=== PATIENT | male | born 1975 | race Caucasian/White ===

== ENCOUNTER 2018-02-12 21:04 | Emergency (ER) | payer BC ==
[2018-02-12 21:40] LABS: Basophils % (Auto) 0.6 % (0.0-1.8); Eosinophils % (Auto) 0.7 % (0.0-4.3); Hematocrit 41.3 % (35.5-45.6); Hemoglobin 14.1 gm/dl (11.8-15.2); Lymphocytes # (Auto) 1.7 K/mm3 (1.2-5.4); Lymphocytes % (Auto) 25.3 % (13.4-35.0); Mean Corpuscular HGB Conc 34 % (32-34); Mean Corpuscular Hemoglobin 32 pg (28-32); Mean Corpuscular Volume 93 fl (84-94); Monocytes # (Auto) 0.6 K/mm3 (0.0-0.8); Monocytes % (Auto) 9.3 % (0.0-7.3); Platelet Count 170 K/mm3 (140-440); Red Blood Count 4.45 M/mm3 (3.65-5.03); Red Cell Distribution Width 13.3 % (13.2-15.2)
[2018-02-12 22:03] LABS: BUN/Creatinine Ratio 23; Blood Urea Nitrogen 23 mg/dL (9-20); Calcium 9.1 mg/dL (8.4-10.2); Hemolysis Index 3
[2018-02-12 22:19] LABS: Bilirubin,Urine NEG (Negative); Blood,Urine NEG (Negative); Color,Urine Straw (Yellow); Mucus,Urine FEW /HPF; Protein,Urine <15 mg/dL mg/dL (Negative); Urobilinogen,Urine < 2.0 mg/dL (<2.0)
[2018-02-13 00:42] VITALS: BP 132/76
[2018-02-13] MEDS ORDERED: FLEXERIL PO ONE (02:06)
[2018-02-13] MEDS ORDERED: NORCO 5/325 PO ONE (02:08)
--- NOTE | 2018-02-13 02:16 | Emergency Department Report ---
HPI - General Chief Complaint: Abdominal Pain Time Seen by Provider: 02/13/18 01:57 - HPI HPI: Room 19 The patient is a 43-year-old male presented with a chief complaint of bilateral flank pain. The patient states after getting off work 2 days ago he noticed a sharp pain in bilateral flanks. The patient states the following day the pain increased but then waned later that day. The patient states today the pain severity returned prompting him to come to the ED. The patient admits to slight dysuria when the symptoms began 2 days ago. The patient had an episode of nausea and vomiting. Patient admits to chills but is unaware of a fever. Patient denies penile discharge. The patient denies any preceding trauma. Patient gives his pain score of 8/10 Location: Bilateral flank Duration: Intermittently 3 days Quality: Sharp Severity: 8/10 Modifying factors: [see above] Context: [see above] Mode of transportation: [not driving] ED Past Medical Hx - Past Medical History Hx Diabetes: Yes - Surgical History Past Surgical History?: No - Family History Family history: no significant - Social History Smoking Status: Former Smoker (none since ) Substance Use Type: None (denies illicit drug use) - Medications Home Medications: Home Medications Medication Instructions Recorded Confirmed Last Taken Type HumaLOG VIAL 15 unit SQ BID 02/12/18 02/12/18 Unknown History Levemir VIAL 20 unit SQ DAILY 02/12/18 02/12/18 Unknown History Cyclobenzaprine [Flexeril] 10 mg PO TID PRN #10 tablet 02/13/18 Unknown Rx HYDROcodone/ACETAMINOPHEN [[place] 1 - 2 each PO Q4-6H PRN #10 tablet 02/13/18 Unknown Rx 5-325 Tablet] Ibuprofen [Motrin 800 MG tab] 800 mg PO Q8HR PRN #20 tablet 02/13/18 Unknown Rx ED Review of Systems ROS: Stated complaint: LOWER BACK PAIN; PAINFUL URINATION Other details as noted in HPI Constitutional: chills. denies: fever Gastrointestinal: nausea, vomiting. denies: abdominal pain Genitourinary: dysuria. denies: discharge Musculoskeletal: back pain Physical Exam - Physical Exam Vital Signs: Vital Signs 02/12/18 02/12/18 02/13/18 21:03 21:22 00:36 Temperature 98.2 F 98.2 F 98.3 F Pulse Rate 81 78 70 Respiratory 18 18 16 Rate Blood Pressure 128/82 128/82 Blood Pressure 132/76 [Left] O2 Sat by Pulse 99 99 98 Oximetry 02/13/18 00:42 Temperature Pulse Rate Respiratory 16 Rate Blood Pressure Blood Pressure [Left] O2 Sat by Pulse 98 Oximetry Physical Exam: GENERAL: The patient is well-developed well-nourished male standing in room not appear to be in acute distress. [] HEENT: Normocephalic. Atraumatic. Extraocular motions are intact. Patient has moist mucous membranes. NECK: Supple. Trachea midline CHEST/LUNGS: Clear to auscultation. There is no respiratory distress noted. HEART/CARDIOVASCULAR: Regular. There is no tachycardia. There is no gallop rub or murmur. ABDOMEN: Abdomen is soft, nontender. Patient has normal bowel sounds. There is no abdominal distention. SKIN: There is no rash. There is no edema. There is no diaphoresis. NEURO: The patient is awake, alert, and oriented. The patient is cooperative. The patient has normal speech MUSCULOSKELETAL: There is bilateral CVA tenderness. There is no evidence of acute injury. ED Course Vital Signs 02/12/18 02/12/18 02/13/18 21:03 21:22 00:36 Temperature 98.2 F 98.2 F 98.3 F Pulse Rate 81 78 70 Respiratory 18 18 16 Rate Blood Pressure 128/82 128/82 Blood Pressure 132/76 [Left] O2 Sat by Pulse 99 99 98 Oximetry 02/13/18 00:42 Temperature Pulse Rate Respiratory 16 Rate Blood Pressure Blood Pressure [Left] O2 Sat by Pulse 98 Oximetry ED Medical Decision Making - Lab Data Result diagrams: 02/12/18 21:33 02/12/18 21:33 Laboratory Tests 02/12/18 02/12/18 02/12/18 21:24 21:33 21:33 WBC 6.5 RBC 4.45 Hgb 14.1 Hct 41.3 MCV 93 MCH 32 MCHC 34 RDW 13.3 Plt Count 170 Lymph % (Auto) 25.3 Hart % (Auto) 9.3 H Eos % (Auto) 0.7 Baso % (Auto) 0.6 Lymph # 1.7 Hart # 0.6 Eos # 0.0 Baso # 0.0 Seg Neutrophils % 64.1 Seg Neutrophils # 4.2 VBG pH Sodium 137 Potassium 4.1 Chloride 94.9 L Carbon Dioxide 31 H Anion Gap 15 BUN 23 H Creatinine 1.0 Estimated GFR > 60 BUN/Creatinine Ratio 23 Glucose 326 H POC Glucose 310 H Calcium 9.1 Urine Color Urine Turbidity Urine pH Ur Specific [place] Urine Protein Urine Glucose (UA) Urine Ketones Urine Blood Urine Nitrite Urine Bilirubin Urine Urobilinogen Ur Leukocyte Esterase Urine WBC (Auto) Urine RBC (Auto) Urine Mucus 02/12/18 02/12/18 21:33 22:00 WBC RBC Hgb Hct MCV MCH MCHC RDW Plt Count Lymph % (Auto) Hart % (Auto) Eos % (Auto) Baso % (Auto) Lymph # Hart # Eos # Baso # Seg Neutrophils % Seg Neutrophils # VBG pH 7.329 Sodium Potassium Chloride Carbon Dioxide Anion Gap BUN Creatinine Estimated GFR BUN/Creatinine Ratio Glucose POC Glucose Calcium Urine Color Straw Urine Turbidity Clear Urine pH 5.0 Ur Specific [place] 1.017 Urine Protein <15 mg/dl Urine Glucose (UA) >=500 Urine Ketones Neg Urine Blood Neg Urine Nitrite Neg Urine Bilirubin Neg Urine Urobilinogen < 2.0 Ur Leukocyte Esterase Neg Urine WBC (Auto) 2.0 Urine RBC (Auto) 1.0 Urine Mucus Few - Radiology Data Radiology results: report reviewed (CT abdomen and pelvis), image reviewed (CT abdomen and pelvis) [place] [address] Cat Scan Report Signed Patient: MILAGROS SERRANO MR#: [id number] : 1975 Acct:[id number] Age/Sex: 43 / M ADM Date: 02/12/18 Loc: ED Attending Dr: Ordering Physician: JONEL MCCONNELL MD Date of Service: 02/13/18 Procedure(s): CT abdomen pelvis wo con Accession Number(s): [id number] cc: JONEL MCCONNELL MD FINAL REPORT EXAM: CT ABDOMEN PELVIS WO CON HISTORY: bilateral flank pain TECHNIQUE: Helical CT scan through the abdomen and pelvis without contrast. Images are reconstructed in the sagittal and coronal planes. PRIORS: None. FINDINGS: Solid organ and bowel evaluation is limited without intravenous contrast. Bowel evaluation is limited without oral contrast. The lung bases are clear. The liver, gallbladder, pancreas, spleen and adrenal glands appear normal. The kidneys appear grossly normal. There is no hydronephrosis or urolithiasis. The pelvic organs appear grossly normal. The stomach appears grossly within normal limits. There are no abnormally dilated loops of bowel or acute inflammatory changes. The appendix is not discretely visualized but there are no inflammatory changes in the right lower quadrant around the area of the cecum. There is a relatively large amount of stool throughout the colon. The abdominal aorta has a normal diameter. There is a small amount of atherosclerotic calcification in the distal abdominal aorta. There is atherosclerotic calcification in the bilateral common iliac arteries greater on the right than the left. There is diffuse atherosclerotic calcification of the internal iliac branches. The bones and subcutaneous soft tissues are unremarkable for age. IMPRESSION: 1. No evidence of hydronephrosis or urolithiasis 2. Question constipation 3. Incidental atherosclerosis greater than expected for age. Transcribed By: KENDALL Dictated By: KARIN KIMBALL MD Electronically Authenticated By: KARIN KIMBALL MD Signed Date/Time: 02/13/18348 DD/ 8 TD/TT: 02/13/18348 - Differential Diagnosis renal colic. Retroperitoneal hematoma, UTI, pyelonephritis Critical care attestation.: If time is entered above; I have spent that time in minutes in the direct care of this critically ill patient, excluding procedure time. ED Disposition Clinical Impression: Back pain Disposition: - TO HOME OR SELFCARE Is pt being admited?: No Does the pt Need Aspirin: No Condition: Stable Instructions: Back Pain (ED) Additional Instructions: Return to the emergency department immediately should you develop worsening symptoms, fever, inability to tolerate food or liquid or any other concerns. Prescriptions: Cyclobenzaprine [Flexeril] 10 mg PO TID PRN #10 tablet PRN Reason: Muscle Spasm HYDROcodone/ACETAMINOPHEN [[place] 5-325 Tablet] 1 - 2 each PO Q4-6H PRN #10 tablet PRN Reason: Pain Ibuprofen [Motrin 800 MG tab] 800 mg PO Q8HR PRN #20 tablet PRN Reason: Pain Referrals: ELIZABETH SINHA MD [Staff Physician] - 3-5 Days (Dr. Sinha is an orthopedic surgeon. Please follow with further evaluation of your back pain) ANGELIA LAKE MD [Primary Care Provider] - [facility] (Dr. Lake is a primary physician. Please follow-up with him to be established as a patient) Forms: Accompanied Note, Work/School Release Form(ED) Time of Disposition: 04:23
--- NOTE | 2018-02-13 03:54 | Cat Scan Report ---
FINAL REPORT EXAM: CT ABDOMEN PELVIS WO CON HISTORY: bilateral flank pain TECHNIQUE: Helical CT scan through the abdomen and pelvis without contrast. Images are reconstructed in the sagittal and coronal planes. PRIORS: None. FINDINGS: Solid organ and bowel evaluation is limited without intravenous contrast. Bowel evaluation is limited without oral contrast. The lung bases are clear. The liver, gallbladder, pancreas, spleen and adrenal glands appear normal. The kidneys appear grossly normal. There is no hydronephrosis or urolithiasis. The pelvic organs appear grossly normal. The stomach appears grossly within normal limits. There are no abnormally dilated loops of bowel or acute inflammatory changes. The appendix is not discretely visualized but there are no inflammatory changes in the right lower quadrant around the area of the cecum. There is a relatively large amount of stool throughout the colon. The abdominal aorta has a normal diameter. There is a small amount of atherosclerotic calcification in the distal abdominal aorta. There is atherosclerotic calcification in the bilateral common iliac arteries greater on the right than the left. There is diffuse atherosclerotic calcification of the internal iliac branches. The bones and subcutaneous soft tissues are unremarkable for age. IMPRESSION: 1. No evidence of hydronephrosis or urolithiasis 2. Question constipation 3. Incidental atherosclerosis greater than expected for age.
== END 2018-02-13 04:39 | disposition home or self-care (01) ==
LOC: ED 21:04
DX: M54.89 Other dorsalgia (principal); Z87.891 Personal history of nicotine dependence; E11.9 Type 2 diabetes mellitus without complications
CPT/HCPCS: 36415; 74176; 80048; 81001; 82805; 82962; 85025; 99284